=== PATIENT | female | born 1970 | race Caucasian/White ===

== ENCOUNTER 2022-08-29 17:40 | Emergency (ER) | payer OTHER ==
[~2022-08-29] VITALS: Ht 167.6 cm; Wt 61.2 kg
--- NOTE | 2022-08-29 18:14 | NUR ---
DR DIAZ AT BEDSIDE FOR EVAL.
[2022-08-29] MEDS ORDERED: CEFTRIAXONE 1 G VIAL IM ONE (18:30)
[2022-08-29] MEDS ORDERED: CEPH500T PO (18:34)
[2022-08-29] MEDS ORDERED: HYDR-4209 PO (18:34)
[2022-08-29] MEDS ORDERED: LIDOCAINE /MPF 1% VIAL 5 ML VIAL ONE (19:08)
[2022-08-29] MEDS ORDERED: CEFTRIAXONE 1 G VIAL ONE (19:09)
[2022-08-29] MEDS ORDERED: ACETAMINOPHEN ES 500 MG TABLET ONE (19:19)
--- NOTE | 2022-08-29 19:19 | NUR ---
URINE COLLECTED AND SENT TO LAB
--- NOTE | 2022-08-29 19:28 | NUR ---
MEDICATED ORDERED. PT DISCHARGED HOME W/ PRESCRIPTION IN STABLE CONDITION.
[2022-08-29 19:29] VITALS: BP 138/84
[2022-08-29] MEDS ORDERED: ACETAMINOPHEN 325 MG TABLET PO ONE (19:30)
[2022-08-29 20:10] LABS: BILIRUBIN,URINE NEGATIVE (NEGATIVE); COLOR,URINE YELLOW (YELLOW); LEUKOCYTE ESTERASE ,URINE 1+ (NEGATIVE); NITRITE, URINE POSITIVE (NEGATIVE); PROTEIN,URINE 2+ mg/dl (NEGATIVE); UGLUCOSE NEGATIVE (NEGATIVE); UROBILINOGEN,URINE 0.2 EU/dL (0.2)
[2022-08-29 20:18] LABS: BACTERIA,URINE 4+ /HPF (None Seen); RBC,URINE 51-80 /HPF (0-2); WBC,URINE 0-2 /HPF (0-3)
== END 2022-08-29 19:31 | disposition home or self-care (01) ==
LOC: ER 17:49
DX: N12 Tubulo-interstitial nephritis, not specified as acute or chronic (principal); Z98.890 Other specified postprocedural states; Z79.899 Other long term (current) drug therapy
CPT/HCPCS: 99283; 96372; 87086; 81001; J0696; J3490